=== PATIENT | female | born 1970 | race Caucasian/White ===

== ENCOUNTER 2017-10-01 16:53 | Emergency (ER) | payer OTHER ==
[2017-10-01 19:17] LABS: URINE PH (Dip) POC 6.5 (5.0-8.5)
[2017-10-01 19:17] LABS: URINE BLOOD (Dip) POC Trace-intact (NEGATIVE); URINE GLUCOSE (Dip) POC Negative (NEGATIVE); URINE KETONES (Dip) POC Trace (NEGATIVE); URINE LEUKOCYTE EST (Dip) POC 1+ (NEGATIVE); URINE NITRITE (Dip) POC Negative (NEGATIVE); URINE TOTAL PROTEIN POC Trace (NEGATIVE)
[2017-10-01] MEDS: HYDROCODONE/APAP (10/325) TAB PO (20:36)
[2017-10-01] MEDS: ACYCLOVIR 800 MG TAB PO (20:52)
== END 2017-10-01 22:19 | disposition home or self-care (01) ==
LOC: FTE 16:53
DX: B02.9 Zoster without complications (principal); N30.01 Acute cystitis with hematuria; R10.2 Pelvic and perineal pain
CPT/HCPCS: 81003; 81025; 87591; 99284

== ENCOUNTER 2018-10-06 19:30 | Emergency (ER) | payer OTHER ==
[2018-10-07] MEDS: KETOROLAC 30 MG INJ IM (01:38)
== END 2018-10-07 01:49 | disposition home or self-care (01) ==
LOC: FTE 19:30
DX: S20.211A Contusion of right front wall of thorax, initial encounter (principal); W10.8XXA Fall (on) (from) other stairs and steps, initial encounter; Y92.9 Unspecified place or not applicable
CPT/HCPCS: 71046; 81025; 96372; 99284-25